=== PATIENT | female | born 1950 | race Caucasian/White ===

== ENCOUNTER → 2017-05-08 | Outpatient (CLI) | payer BC ==
--- NOTE | 2017-05-11 08:20 | XCELERA REPORT ---
[address] [address] Lower Extremity Venous Evaluation Name: INDER JONES Age: 66 yrs Gender: Female : 1950 Patient Status: Outpatient Patient Location: Study Date: 05/08/2017 03:36 PM Procedure: Color flow and duplex imaging of the veins of the left lower extremity as well as the right Common Femoral vein. Reason For Study: LLE SWELLING Ordering Physician: CARISSA STENI PA-C Performed By: Lloyd Perry Right Sided Venous Evaluation The right common femoral vein is fully compressible. Spontaneous and phasic flow is present in the right common femoral vein. Left Sided Venous Evaluation Normal vessel filling wall to wall, compression and augmentation as well as Colour flow down to the infrageniculate veins. Interpretation Summary No duplex evidence of DVT or obstruction in the left lower extremity nor in the right Common Femoral vein. : CARISSA STEIN PA-C > Isac Feliciano
== END ==
LOC: SP 15:14
PROVIDERS: ATTEND Physician Assistant
DX: R60.9 Edema, unspecified (principal); M79.605 Pain in left leg; M79.606 Pain in leg, unspecified; R09.89 Other specified symptoms and signs involving the circulatory and respiratory systems
CPT/HCPCS: 93971

== ENCOUNTER 2018-11-19 11:07 | Emergency (ER) | payer MEDICARE, BC, OTHER ==
[2018-11-19] MEDS ORDERED: ASPIRIN 81 MG TABLET, CHEWABLE PO ONE ×2 (11:25→11:26)
--- NOTE | 2018-11-19 11:28 | ER Document Report ---
ED Medical Screen (RME) - General Chief Complaint: Chest Pain Stated Complaint: CHEST PAIN Time Seen by Provider: 11/19/18 11:21 Primary Care Provider: ROSETTE ROLDAN MD [Primary Care Provider] - Follow up as needed Mode of Arrival: Ambulatory Information source: Patient Notes: This is a 68-year-old female history of diabetes and asthma presents today with complaints of chest pain midsternal that radiates to her back. Reports she has chronic neck and arm pain and is always sweating. Denies history of cardiac disease. Respiratory rate even unlabored no EKG changes from [place] [address] elevation no T wave diversion I have greeted and performed a rapid initial assessment of this patient. A comprehensive ED assessment and evaluation of the patient, analysis of test results and completion of the medical decision making process will be conducted by additional ED providers. Dictation of this chart was performed using voice recognition software; therefore, there may be some unintended grammatical errors. TRAVEL OUTSIDE OF THE [place] IN LAST 30 DAYS: No - Related Data Allergies/Adverse Reactions: No Known Allergies Allergy (Verified 01/04/14 07:14) Past Medical History - Past Medical History Cardiac Medical History: Denies: Hx Coronary Artery Disease, Hx Heart Attack, Hx Hypertension Pulmonary Medical History: Reports: Hx Asthma, Hx Bronchitis Denies: Hx COPD, Hx Pneumonia Neurological Medical History: Denies: Hx Cerebrovascular Accident, Hx Seizures Endocrine Medical History: Reports: Hx Diabetes Mellitus Type 1 GI Medical History: Reports: Hx Gastroesophageal Reflux Disease Musculoskeltal Medical History: Reports Hx Arthritis - Generalized Past Surgical History: Reports: Hx Hysterectomy, Hx Orthopedic Surgery - right knee, Hx Tonsillectomy - Immunizations Hx Diphtheria, Pertussis, Tetanus Vaccination: Yes Physical Exam - Vital signs Vitals: Temp Pulse Resp BP Pulse Ox 98 F 81 18 151/71 H 93 11/19/18 11:08 11/19/18 11:08 11/19/18 11:08 11/19/18 11:08 11/19/18 11:08 Course - Vital Signs Vital signs: Temp Pulse Resp BP Pulse Ox 98 F 81 18 151/71 H 93 11/19/18 11:08 11/19/18 11:08 11/19/18 11:08 11/19/18 11:08 11/19/18 11:08 Doctor's Discharge - Discharge Referrals: ROSETTE ROLDAN MD [Primary Care Provider] - Follow up as needed
--- NOTE | 2018-11-19 11:58 | RADIOLOGY REPORT (SQ) ---
EXAM DESCRIPTION: CHEST 2 VIEWS COMPLETED DATE/TIME: 11/19/2018 11:44 am REASON FOR STUDY: cp COMPARISON: None. EXAM PARAMETERS: NUMBER OF VIEWS: two views TECHNIQUE: Digital Frontal and Lateral radiographic views of the chest acquired. RADIATION DOSE: NA LIMITATIONS: none FINDINGS: LUNGS AND PLEURA: Right middle lobe airspace disease consistent with pneumonia. Small rig ht effusion. Left lung field is clear. MEDIASTINUM AND HILAR STRUCTURES: No masses or contour abnormalities. HEART AND VASCULAR STRUCTURES: Heart normal size. No evidence for failure. BONES: No acute findings. HARDWARE: None in the chest. OTHER: No other significant finding. IMPRESSION: Right middle lobe infiltrate consistent with pneumonia. Small right effusion. TECHNICAL DOCUMENTATION: JOB ID: [id number] [employer]- All Rights Reserved Reading location - IP/workstation name: [email or web address]
[2018-11-19 12:21] LABS: ABSOLUTE BASOPHILS # (AUTO) 0.1 10^3/uL (0.0-0.2); ABSOLUTE EOSINOPHILS # (AUTO) 1.5 10^3/uL (0.0-0.6); ABSOLUTE LYMPHOCYTES (AUTO) 1.1 10^3/uL (0.5-4.7); ABSOLUTE MONOCYTES (AUTO) 0.8 10^3/uL (0.1-1.4); ABSOLUTE NEUT (AUTO) 7.8 10^3/uL (1.7-8.2); BASOPHILS % (AUTO) 0.7 % (0-2); EOSINOPHILS % (AUTO) 13.2 % (0-6); HEMATOCRIT 39.6 % (36.0-47.0); LYMPHOCYTES % (AUTO) 9.9 % (13-45); MEAN CORPUSCULAR HEMOGLOBIN 27.5 pg (27.0-33.4); MEAN CORPUSCULAR HGB CONC 32.8 g/dL (32.0-36.0); MEAN CORPUSCULAR VOLUME 84 fl (80-97); MONOCYTES % (AUTO) 7.3 % (3-13); PLATELET COUNT 250 10^3/uL (150-450); RED BLOOD COUNT 4.72 10^6/uL (3.72-5.28); RED CELL DISTRIBUTION WIDTH 15.2 % (11.5-14.0); SEGMENTED NEUTROPHILS % (AUTO) 68.9 % (42-78); TOTAL CELLS COUNTED % (AUTO) 100 %; WHITE BLOOD COUNT 11.3 10^3/uL (4.0-10.5)
[2018-11-19 12:25] LABS: APPEARANCE,URINE CLEAR; BILIRUBIN,URINE NEGATIVE (NEGATIVE); COLOR,URINE YELLOW; GLUCOSE, URINE NEGATIVE (NEGATIVE); KETONES,URINE NEGATIVE (NEGATIVE); LEUKOCYTE ESTERASE,URINE NEGATIVE (NEGATIVE); NITRITE,URINE NEGATIVE (NEGATIVE); PROTEIN,URINE NEGATIVE (NEGATIVE); URINE SPECIFIC GRAVITY 1.013; UROBILINOGEN,URINE NEGATIVE mg/dL (<2.0)
[2018-11-19 12:41] LABS: ALBUMIN 4.3 g/dL (3.5-5.0); ALKALINE PHOSPHATASE 62 U/L (38-126); ANION GAP 8 (5-19); ASPARTATE AMINO TRANSFERASE 20 U/L (14-36); BILIRUBIN,DIRECT 0.1 mg/dL (0.0-0.4); BILIRUBIN,TOTAL 0.3 mg/dL (0.2-1.3); BLOOD UREA NITROGEN 22 mg/dL (7-20); CALCIUM 9.7 mg/dL (8.4-10.2); CARBON DIOXIDE 29 mmol/L (22-30); CHLORIDE 102 mmol/L (98-107); CREATINE KINASE 61 U/L (30-135); GLUCOSE 148 mg/dL (75-110); POTASSIUM 4.9 mmol/L (3.6-5.0); TOTAL PROTEIN 6.9 g/dL (6.3-8.2)
[2018-11-19 12:52] LABS: CREATINE KINASE MB 0.78 ng/mL (<4.55)
[2018-11-19 12:54] LABS: TROPONIN I < 0.012 ng/mL
[2018-11-19 13:53] VITALS: BP 136/60
--- NOTE | 2018-11-19 15:06 | EKG REPORT ---
SEVERITY:- NORMAL ECG - SINUS RHYTHM : Confirmed by: Kendrick Shirley MD 19-Nov-2018 15:05:21
--- NOTE | 2018-11-19 15:37 | ER Document Report ---
Entered by DANDRE NIETO SCRIBE 11/19/18 [id number] Acting as scribe for:MARY PITTMAN MD ED Cardiac - General Chief Complaint: Chest Pain Stated Complaint: CHEST PAIN Time Seen by Provider: 11/19/18 11:21 Primary Care Provider: ROSETTE ROLDAN MD [Primary Care Provider] - 11/22/18 Mode of Arrival: Ambulatory Information source: Patient Notes: Patient is a 68-year-old female who presents to the emergency department today with complaints of chest pain that seemed to radiate to her back which she noticed this morning after waking up. Patient then mentions that she has been having a very bad cough bringing up thick yellow sputum as well. Patient states that this pain lasted for approximately 1 to 2 minutes, went away for about 10 minutes, and then came back for about 1 to 2 minutes again. Patient states this same pattern has continued until arrival here at the ED where it "just stopped". Patient has been prescribed azithromycin, Ciprodex, and ciprofloxacin all within the last 2-1/2 to 3 weeks. Patient states that she was put on the azithromycin for a cold, Ciprodex for an earache, and the ciprofloxacin for possible UTI. TRAVEL OUTSIDE OF THE [place] IN LAST 30 DAYS: No - Related Data Allergies/Adverse Reactions: No Known Allergies Allergy (Verified 01/04/14 07:14) Past Medical History - General Information source: Patient - Social History Smoking Status: Former Smoker - quit in 2008 Cigarette use (# per day): No Frequency of alcohol use: None Drug Abuse: None Lives with: Family Family History: Reviewed & Not Pertinent Patient has suicidal ideation: No Patient has homicidal ideation: No Pulmonary Medical History: Reports: Hx Asthma, Hx Bronchitis Endocrine Medical History: Reports: Hx Diabetes Mellitus Type 1 GI Medical History: Reports: Hx Gastroesophageal Reflux Disease Musculoskeletal Medical History: Reports Hx Arthritis - Generalized Past Surgical History: Reports: Hx Hysterectomy, Hx Orthopedic Surgery - right knee, Hx Tonsillectomy - Immunizations Hx Diphtheria, Pertussis, Tetanus Vaccination: Yes Review of Systems - Review of Systems Constitutional: No symptoms reported EENT: No symptoms reported Cardiovascular: See HPI, Chest pain Respiratory: See HPI, Cough Gastrointestinal: No symptoms reported Genitourinary: No symptoms reported Female Genitourinary: No symptoms reported Musculoskeletal: No symptoms reported Skin: No symptoms reported Hematologic/Lymphatic: No symptoms reported Neurological/Psychological: No symptoms reported -: Yes All other systems reviewed and negative Physical Exam - Vital signs Vitals: Temp Pulse Resp BP Pulse Ox 98 F 81 18 151/71 H 93 11/19/18 11:08 11/19/18 11:08 11/19/18 11:08 11/19/18 11:08 11/19/18 11:08 - Notes Notes: Physical Exam: General: Alert, appears well. HEENT: Normocephalic. Atraumatic. PERRL. Extraocular movements intact. Oropharynx clear. Neck: Supple. Non-tender. Respiratory: No respiratory distress. Coarse breath sounds with rhonchi b ilaterally. Slightly decreased breath sounds in the right middle lobe. Cardiovascular: Regular rate and rhythm. Abdominal: Obese. Non-tender. No distension. Normal Bowel Sounds. Back: No gross abnormalities. Extremities: Moves all four extremities. Upper extremities: Normal inspection. Normal ROM. Lower extremities: Normal inspection. No edema. Normal ROM. Neurological: Normal cognition. AAOx4. Normal speech. Psychological: Normal affect. Normal Mood. Skin: Warm. Dry. Normal color. Course - Re-evaluation Re-evalutation: 11/19/18 13:55 The patient's chest x-ray shows a right middle lobe infiltrate. EKG is normal. Troponins are undetectable. The patient recently stopped taking her Robaxin and Mobic. She reports she was up coughing all night and coughed up a large amount of sputum this morning. She does not have a history of coronary artery disease, however she does have a history of hypertension and diabetes. She states she has a history of asthma, it is most likely COPD. Her report of her chest pain does not sound cardiac, and that the pain would last for 1 to 2 minutes, resolved for 10 minutes or more, then return for 1 to 2 minutes. - Vital Signs Vital signs: Temp Pulse Resp BP Pulse Ox 97.9 F 81 24 H 136/60 H 92 11/19/18 13:52 11/19/18 11:08 11/19/18 13:51 11/19/18 13:52 11/19/18 13:52 - Laboratory Result Diagrams: 11/19/18 12:05 11/19/18 12:05 Laboratory results interpreted by me: 11/19/18 11/19/18 12:05 12:05 WBC 11.3 H RDW 15.2 H Lymph % (Auto) 9.9 L Eos % (Auto) 13.2 H Absolute Eos (auto) 1.5 H BUN 22 H Glucose 148 H - Diagnostic Test Radiology reviewed: Image reviewed, Reports reviewed - Chest x-ray shows a right middle lobe infiltrate - EKG Interpretation by Me EKG shows normal: Sinus rhythm, Eleanor, Intervals, QRS Complexes, ST-T Waves Rate: Normal - 76 Rhythm: NSR Discharge - Discharge Clinical Impression: Pneumonia Qualifiers: Pneumonia type: due to unspecified organism Laterality: right Lung location: middle lobe of lung Qualified Code(s): J18.1 - Lobar pneumonia, unspecified organism Chest pain Qualifiers: Chest pain type: unspecified Qualified Code(s): R07.9 - Chest pain, unspecified Condition: Stable Disposition: HOME, SELF-CARE Additional Instructions: Pneumonia Your examination indicates that you have pneumonia. This is an infection of the lung tissue, usually caused by bacteria or a virus. Symptoms include cough, fever, shaking chills, chest pain, shortness of breath, and coughing up bloody sputum. Treatment for bacterial pneumonia includes rest, antibiotics for 10 to 14 days, increasing your clear liquid intake, a cool mist humidifier at your bedside, and fever medication. Often, a repeat chest X-ray is performed in a few weeks--even if you feel better--to ascertain whether the infection has compl etely resolved and no underlying lung problem is present. You should call the physician if you develop persistent vomiting, high fever that does not respond to fever medication, increasing shortness of breath, confusion, or lethargy. Also, failure to improve within two to three days is an indication for re-examination. Chest Pain of Unclear Cause The exact cause of your chest pain isn't clear. Fortunately, there is no evidence of a dangerous medical condition. Further testing may be required to find the source of the pain. Most often, we find that this pain is coming from the chest wall -- the muscles or rib joints in the chest. But chest pain can come from the lung and lung lining, the esophagus, the heart valves or heart lining, and even the stomach or gallbladder. Rest. Eat lightly until the pain is gone. We may prescribe medicine for pain and inflammation. You should call the physician immediately if the pain radiates to the shoulder, jaw or arms; if you start to run a fever or develop a cough; or if you develop shortness of breath, or other new or alarming symptoms. Your chest x-ray shows a right middle lobe pneumonia. That is probably contributing to the coughing spells you are having. Your EKG was completely normal, and your cardiac enzymes were negative. I suspect your chest pain was related to all the coughing you have been doing. Stop taking the Cipro, and take the doxycycline as prescribed. Drink plenty of fluids and get plenty of rest. Take the Tessalon Perles as prescribed to help control your cough. Start taking Aleve or ibuprofen for your neck pain. Follow-up with your primary care provider Thursday for recheck. RETURN TO THE EMERGENCY ROOM IF ANY NEW OR WORSENING SYMPTOMS. Prescriptions: Doxycycline Hyclate 100 mg PO BID #20 tablet.dr Lopez [Tessalon Perles 100 mg Capsule] 100 mg PO ASDIR PRN #30 capsule PRN Reason: Referrals: ROSETTE ROLDAN MD [Primary Care Provider] - 11/22/18 Scribe Attestation: 11/19/18 13:53 I personally performed the services described in the documentation, reviewed and edited the documentation which was dictated to the scribe in my presence, and it accurately records my words and actions. I personally performed the services described in the documentation, reviewed and edited the documentation which was dictated to the scribe in my presence, and it accurately records my words and actions.
== END 2018-11-19 14:08 | disposition home or self-care (01) ==
LOC: ER 11:07
DX: J18.1 Lobar pneumonia, unspecified organism (principal); R07.9 Chest pain, unspecified; R05 Cough; M54.9 Dorsalgia, unspecified; Z87.891 Personal history of nicotine dependence; E10.9 Type 1 diabetes mellitus without complications
CPT/HCPCS: 93005; 36415; 82553; 82550; 83690; 85025; 80053; 81001; 84484; 71046; 93010; A9270; 99285